=== PATIENT | female | born 1960 | race Caucasian/White ===

== ENCOUNTER 2024-08-21 12:20 | Day surgery (SDC) | payer OTHER, SELFPAY ==
--- NOTE | 2024-08-18 10:02 | EKG_ITS ---
[facility] Test Date: 2024-08-18 Pat Name: SUSAN JAMISON Department: Room: - Gender: Female Attendant [employer]: ELI : 1960 Requested By: Wilfredo Velasquez Order Number: [id number] Reading MD: Wilfredo Velasquez Measurements Intervals [place] Rate: 73 P: 79 MS: 226 QRS: 2 QRSD: 101 T: 48 QT: 391 QTc: 434 Interpretive Statements SINUS RHYTHM WITH FIRST DEGREE AV BLOCK Compared to ECG 04/20/2023 08:22:09 First degree AV block now present /store/S0/[id number].pdf
[2024-08-18 10:46] LABS: Partial Thromboplastin Time 27.9 Seconds (22.0-36.0); Prothrombin Time 10.8 Seconds (9.0-12.2)
[2024-08-18 11:04] LABS: Alanine Aminotransferase 17 U/L (10-49); Albumin, Serum 4.6 gm/dL (3.4-4.8); Albumin/Globulin Ratio 2.1 (1.2-2.2); Alkaline Phosphatase 67 U/L (46-116); Anion Gap 9 (7-16); Aspartate Amino Transferase 16 U/L (0-34); BUN/Creatinine Ratio 11 Ratio (12-20); Bilirubin,Total 0.8 mg/dL (0.3-1.2); Blood Urea Nitrogen 11 mg/dL (9-23); Calcium 10.4 mg/dL (8.3-10.6); Calcium (Corrected) 10.4 mg/dL (8.5-10.1); Carbon Dioxide 24.9 mMol/L (20.0-31.0); Chloride 106 mMol/L (98-107); Globulin 2.2 gm/dL (2.3-3.5); Glucose 114 mg/dL (74-106); Osmolality,Calculated 279 (275-295); Potassium 4.3 mMol/L (3.4-5.1); Sodium 140 mMol/L (136-145); Total Protein 6.8 gm/dL (5.7-8.2); eGFR > 60 See Note
[2024-08-18 15:23] VITALS: BMI 30.4
[2024-08-21] VITALS (8 sets, daily range): BP systolic 123–152; BP diastolic 50–87; PULSE 79–101; RESP 12–20; TEMP 36.3–36.8; O2SAT 94–98; BMI 30.7
[2024-08-21] MEDS: SODIUM CHLORIDE 0.9% 1000 ML 1,000 ML 80 ML IV (16:38)
--- NOTE | 2024-08-21 17:15 | SUR.PHASEII ---
Pt. arrived to recovery via [place], no c/o pain or nausea at this time, pt. awake, appears drowsy, words slurring, lung sounds clear, equal expansion echo., pt. receiving 2 liters 02 via [place], report received from [place] [facility] and Dr. Andrews.
--- NOTE | 2024-08-21 17:55 | SUR.PHASEII ---
Pt. meets criteria for discharge, VSS, no c/o pain or nausea at this time, IV discontinued without complications, provided discharge instructions to pt. and pt.'s , verbalized understanding. Escorted pt. to vehicle via w/c with all of belongings by staff.
== END 2024-08-21 17:55 | disposition home or self-care (01) ==
PROVIDERS: Referring Provider Specialist; Visit Provider Specialist
PROC: 0DJD8ZZ Inspection of Lower Intestinal Tract, Via Natural or Artificial Opening Endoscopic (ICD-10-PCS; CPT 45378; principal; 2024-08-21 14:45)
DX: D12.5 Benign neoplasm of sigmoid colon (principal); D12.8 Benign neoplasm of rectum; K64.9 Unspecified hemorrhoids; K57.31 Diverticulosis of large intestine without perforation or abscess with bleeding; Z01.810 Encounter for preprocedural cardiovascular examination
CPT/HCPCS: 45385; 45380; 36415; 80053; 85610; 85730; 93005; J7030

== ENCOUNTER 2025-05-07 09:00 | Day surgery (SDC) | payer BC, SELFPAY ==
--- NOTE | 2025-05-04 06:00 | EKG_ITS ---
[facility] Test Date: 2025-05-04 Pat Name: SUSAN JAMISON Department: Room: - Gender: Female Chemistry Intern: LARRY : 1960 Requested By: Adilson Andrews Order Number: [id number] Reading MD: Adilson Andrews Measurements Intervals [place] Rate: 67 P: 63 MD: 191 QRS: -11 QRSD: 104 T: 55 QT: 406 QTc: 431 Interpretive Statements SINUS RHYTHM Compared to ECG 08/18/2024 10:06:35 First degree AV block no longer present /store/S0/[id number].pdf
[2025-05-04 12:20] LABS: Alanine Aminotransferase 16 U/L (10-49); Albumin, Serum 5.2 gm/dL (3.4-4.8); Albumin/Globulin Ratio 2.1 (1.2-2.2); Alkaline Phosphatase 69 U/L (46-116); Anion Gap 8 (7-16); Aspartate Amino Transferase 18 U/L (0-34); BUN/Creatinine Ratio 10 Ratio (12-20); Bilirubin,Total 0.5 mg/dL (0.3-1.2); Blood Urea Nitrogen 11 mg/dL (9-23); Calcium 10.5 mg/dL (8.3-10.6); Calcium (Corrected) 10.5 mg/dL (8.5-10.1); Carbon Dioxide 27.4 mMol/L (20.0-31.0); Chloride 108 mMol/L (98-107); Creatinine (Component) 1.1 mg/dL (0.6-1.3); Globulin 2.5 gm/dL (2.3-3.5); Glucose 94 mg/dL (74-106); Osmolality,Calculated 284 (275-295); Potassium 4.4 mMol/L (3.4-5.1); Sodium 143 mMol/L (136-145); Total Protein 7.7 gm/dL (5.7-8.2); eGFR 57 See Note
[2025-05-04 15:37] VITALS: BMI 30.7
[2025-05-07 10:10] VITALS: BP 124/72; PULSE 91; RESP 17; TEMP 36.6; O2SAT 97
[2025-05-07 10:17] VITALS: TEMP 36.6; BMI 29.8
--- NOTE | 2025-05-07 10:44 | SUR.PREOP ---
Patient expressed gratitude for prayer before their procedure.
[2025-05-07] MEDS: RINGERS LACTATED 1000 ML 1,000 ML 20 ML IV (13:22)
[2025-05-07 14:12] VITALS: BP 138/64; PULSE 84; RESP 16; TEMP 36.5; O2SAT 95
[2025-05-07 14:22] VITALS: BP 141/75; PULSE 84; RESP 16; O2SAT 95
[2025-05-07 14:32] VITALS: BP 137/12; PULSE 86; RESP 16; O2SAT 95
== END 2025-05-07 14:42 | disposition home or self-care (01) ==
PROVIDERS: Anesthesiology; Referring Provider Specialist; Visit Provider Specialist
PROC: 0DJD8ZZ Inspection of Lower Intestinal Tract, Via Natural or Artificial Opening Endoscopic (ICD-10-PCS; CPT 45378; principal; 2025-05-07 11:15)
PROC: (CPT 43239; 2025-05-07 11:15)
DX: K29.50 Unspecified chronic gastritis without bleeding (principal); K20.90 Esophagitis, unspecified without bleeding; K52.9 Noninfective gastroenteritis and colitis, unspecified; K31.89 Other diseases of stomach and duodenum; K22.70 Barrett's esophagus without dysplasia; Z01.810 Encounter for preprocedural cardiovascular examination
CPT/HCPCS: 43239; 36415; 80053; 93005; A4649; J7120

== ENCOUNTER 2025-05-15 00:19 | Emergency (ER) | payer BC, SELFPAY ==
[2025-05-15 00:20] VITALS: BMI 30.7
[2025-05-15 01:17] VITALS: BP 117/59; PULSE 72; RESP 16; TEMP 36.8; O2SAT 98
--- NOTE | 2025-05-15 01:24 | XR_ITS ---
Examination: CT abdomen and pelvis without contrast. Coronal 3-D reconstructions. Sagittal 2-D reconstructions. Date and time of exam: May 15, 2025, 0134 hours, comparison 02/06/2023 INDICATIONS: Left flank pain today CTDI: vol (mGy): 10.41 DLP: (mGycm): 565 Technique: Axial images of the abdomen have been obtained, 3 mm slice thickness Intravenous contrast material has not been administered. Low dose protocols were performed. One or more of the following dose reduction techniques were used; automated exposure control, adjustment of the mA and/or KV according to patient size, use of iterative reconstruction technique. Findings: Liver mildly irregular in contour No gallstones Spleen not enlarged No pancreatic or adrenal mass No renal or ureteral calculi Aorta normal size No pericecal inflammatory change No bowel obstruction Colonic diverticulosis Acute diverticulitis descending colon for instance axial image 91 no peridiverticular abscess Absent uterus No adnexal mass Severe osteopenia, chronic wedging L5 vertebral body IMPRESSION: Acute diverticulitis descending colon, no peridiverticular abscess
--- NOTE | 2025-05-15 01:24 | PD.EDRME ---
Rapid Medical Screening Exam RME Arrival date/time: 05/15/25 00:19 This is a case of 64-year-old female who have history of gastritis status post colonoscopy 5 days ago and adnexal mass came in in the emergency room due to left-sided abdominal pain radiating to the left flank today no other symptoms noted Chief Complaint: Abdominal Pain Time Seen by Provider: 05/15/25 01:05 Vital signs: Vital Signs Temperature 98.2 F 05/15/25 01:17 Pulse Rate 72 05/15/25 01:17 Respiratory Rate 16 05/15/25 01:17 Blood Pressure 117/59 L 05/15/25 01:17 Pulse Oximetry (%) 98 05/15/25 01:17 Oxygen Delivery Method Room Air 05/15/25 01:17 Exam: Moderate tenderness left lower quadrant left flank no guarding no rebound no rigidity Clinical Impression: Abdominal pain
[2025-05-15 02:14] LABS: Basophils # (Auto) 0.1 Thou/mm3 (0.0-0.2); Basophils % (Auto) 1 % (0-2.5); Eosinophils # (Auto) 0.2 Thou/mm3 (0.0-0.5); Eosinophils % (Auto) 2 % (0-10); Hematocrit 37.9 % (36.0-46.0); Hemoglobin 12.6 g/dL (12.0-16.0); Immature Granulocytes Auto 0.03 Thou/mm3 (0.00-0.00); Lymphocytes # (Auto) 2.4 Thou/mm3 (1.0-4.8); Lymphocytes % (Auto) 24 % (10-50); Mean Corpuscular HGB Conc 33.2 g/dl (31.0-37.0); Mean Corpuscular Hemoglobin 30.0 pg (25.0-35.0); Mean Corpuscular Volume 90 fL (80-100); Monocytes # (Auto) 0.9 Thou/mm3 (0.0-0.8); Monocytes % (Auto) 9 % (0-12); Neutrophils # (Auto) 6.5 Thou/mm3 (1.8-7.7); Neutrophils % (Auto) 65 % (37-80); Nucleated Red Blood Cell # 0.00 Thou/mm3 (0.00-0.00); Nucleated Red Blood Cell % 0 /100 WBC (0); Platelet Count 274 Thou/mm3 (140-440); RDW Standard Deviation 43.6 fL (36.4-46.3); Red Blood Count 4.20 Miln/mm3 (4.00-5.20); White Blood Count 10.1 Thou/mm3 (3.6-11.0)
[2025-05-15 02:15] LABS: Collection Type, Urine Clean Catch
[2025-05-15 02:25] LABS: Bilirubin,Urine Negative (Negative); Blood,Urine Negative (Negative); Clarity,Urine Clear (Clear/Hazy); Color,Urine Yellow (Lt Yel-Yel); Glucose, Urine Negative (Negative); Ketones,Urine Negative (Negative); Leukocyte Esterase,Urine Positive (Negative); Nitrite,Urine Negative (Negative); PH,Urine 5.5 (5.0-7.0); Protein,Urine Trace (Neg - Trace); RBC,Urine 2 /hpf (0-3); Specific Gravity,Urine 1.031 (1.001-1.035); Squamous Epithelial Cell,Urine 1 /hpf (0-5); Urobilinogen,Urine Negative mg/dL (0.0-1.0); WBC,Urine 3 /hpf (0-5)
--- NOTE | 2025-05-15 02:28 | PRELIM_ITS ---
CT scan of the abdomen and pelvis without intravenous contrast (axial sections with sagittal and coronal reformats); May 15, 2025 at 0134 hours Clinical History: Abdominal pain. Comparison: None available at the time of this report. Findings: The lung bases are clear. The gallbladder, pancreas, spleen, kidneys and adrenals are unremarkable on this noncontrast study. Hepatomegaly. Mild irregular liver margins. No evidence of bowel obstruction. No evidence of appendicitis. S/p hysterectomy. There is no mesenteric or retroperitoneal adenopathy. The urinary bladder is unremarkable. There is no free fluid or free air. The osseous structures are unremarkable. Thickening of the descending colon associated with peripheral fat stranding, no perforation, no collections. Diverticulosis of the colon. Impression: Acute diverticulitis of the descending colon. Hepatomegaly and probable cirrhosis. Report Electronically Signed By: Noé Arceo 05/15/2025 2:27:53 AM [EST]
[2025-05-15 02:33] LABS: Alanine Aminotransferase 12 U/L (10-49); Albumin, Serum 4.7 gm/dL (3.4-4.8); Albumin/Globulin Ratio 2.0 (1.2-2.2); Alkaline Phosphatase 79 U/L (46-116); Anion Gap 8 (7-16); Aspartate Amino Transferase 14 U/L (0-34); BUN/Creatinine Ratio 11 Ratio (12-20); Bilirubin,Total 0.5 mg/dL (0.3-1.2); Blood Urea Nitrogen 11 mg/dL (9-23); Calcium 10.2 mg/dL (8.3-10.6); Calcium (Corrected) 10.2 mg/dL (8.5-10.1); Carbon Dioxide 29.0 mMol/L (20.0-31.0); Chloride 106 mMol/L (98-107); Creatinine (Component) 1.0 mg/dL (0.6-1.3); Estimated Creatinine Clearance 75.9 mL/min (>60); Globulin 2.4 gm/dL (2.3-3.5); Glucose 105 mg/dL (74-106); Lipase 46 U/L (12-53); Osmolality,Calculated 284 (275-295); Potassium 4.1 mMol/L (3.4-5.1); Sodium 143 mMol/L (136-145); Total Protein 7.1 gm/dL (5.7-8.2); eGFR > 60 See Note
--- NOTE | 2025-05-15 02:35 | EDNOTE_ITS ---
ED Abdominal Pain RME/HPI General Chief Complaint: Abdominal Pain Stated complaint: LEFT FLANK PAIN Time seen by provider: 05/15/25 01:05 Arrival date/time: 05/15/25 00:19 This is a case of 65-year-old female with with history of gastritis status post colonoscopy [address] velasquez came in in the emergency due to left-sided lower abdominal pain radiating to the left flank today associated with nausea vomiting denies any constipation diarrhea or blood in the stool persistence of the symptoms this patient decided to sought consult here in the emergency room Limitations: no limitations RME / HPI RME / HPI narrative: 05/15/25 00:19 This is a case of 64-year-old female who have history of gastritis status post colonoscopy 5 days ago and adnexal mass came in in the emergency room due to left-sided abdominal pain radiating to the left flank today no other symptoms noted Exam: Moderate tenderness left lower quadrant left flank no guarding no rebound no rigidity Impression: Abdominal pain Related Data Home Medications ?Medication ?Instructions ?Recorded ?Confirmed pantoprazole 40 mg tablet,delayed 40 mg PO DAILY 02/0605/04/25 release rosuvastatin 10 mg tablet 10 mg PO HS 02/06/23 5 Previous Rx's ?Medication ?Instructions ?Recorded ciprofloxacin HCl 500 mg tablet 500 mg PO BID 10 days #20 tabs 05/15/25 dicyclomine 20 mg tablet 20 mg PO TID PRN abdominal p ain 05/15/25 #20 tabs metronidazole 500 mg tablet 500 mg PO Q8H 10 days #30 tabs 05/15/25 ondansetron 4 mg disintegrating 4 mg PO Q8H #20 tabs 1 tablet Allergies Allergy/AdvReac Type Severity Reaction Status Date / Time No Known Allergies Allergy Verified 05/15/25 00:20 Review of Systems Review of Systems Systems Reviewed: All systems reviewed, normal except as documented Past Medical History Past Medical History NEUROLOGIC: Positive Migraine; Negative Neurological Disorders or Seizures CARDIAC: Positive Cardiac Disorders (cardiac arrest during surgery), Hypercholesterolemia and Hypertension (hx, no meds); Negative Congestive Heart Failure RESPIRATORY: Negative Chronic Obstructive Pulmonary Disease (COPD) GASTROINTESTINAL: Positive Gastrointestinal Disorders, Gastroesophageal Reflux Disease and Obesity; Negative Hepatitis GENITOURINARY: Negative Genitourinary Disorders (fatty liver) or Renal Disease REPRODUCTIVE: Positive Previous Pregnancies; Negative Endometriosis or Pelvic Inflammatory Disease MUSCULOSKELETAL: Negative Musculoskeletal Disorders ENDOCRINE: Positive Diabetes Mellitus Type 2 (hx, no meds, weight/diet controlled); Negative Endocrine Disorders (3 thyroid nodules) or Diabetes Mellitus Type 1 HEMATOLOGIC: Positive Blood Disorders and Anemia PSYCHO/SOCIAL: Positive Anxiety OTHER HISTORY: Positive Hospitalization (surgery), Chicken Pox and Mumps; Negative Autoimmune Disease, Shingles, Blood Transfusions, Anesthesia Reactions or Cancer Family History FAMILY HISTORY: Positive Family Surgery; Negative Family Psychiatric Problems, Family Respiratory Disorders, Family Cardiac Disorders, Family Gastrointestinal Problems, Family Cancer or Family Anesthesia Reaction Surgical History SURGICAL: Positive Hysterectomy and Tubal Ligation Social History SMOKING STATUS: Never smoker ED Exam General Limitations: Present no limitations General appearance: Present alert, in no apparent distress and other (Patient is awake alert oriented not in distress nontoxic looking well-hydrated well- nourished) Head Head exam: Present atraumatic, normocephalic and normal inspection Eye Eye exam: Present normal appearance, PERRL and EOMI ENT ENT exam: Present normal exam, normal oropharynx and mucous membranes moist Neck Neck exam: Present normal inspection, full ROM and trachea midline; Absent tenderness, meningismus, lymphadenopathy or thyromegaly Chest Chest inspection: Present normal inspection and symmetric chest wall rise; Absent tenderness Respiratory Respiratory exam: Present normal lung sounds bilaterally; Absent respiratory distress, wheezes, stridor, accessory muscle use or prolonged expiratory phase Cardiovascular Cardiovascular exam: Present regular rate, normal rhythm and normal heart sounds; Absent bradycardia, tachycardia, irregular rhythm, systolic murmur or diastolic murmur Abdominal Exam Abdominal exam: Present soft, tenderness (Moderate tenderness left lower quadrant left upper quadrant and left flank no guarding no rebound no rigidity no CVA tenderness bladder is nondistended nontender) and normal bowel sounds; Absent distention, guarding, rebound, rigidity, diminished bowel sounds, hyperactive bowel sounds, hypoactive bowel sounds, organomegaly, incision, psoas sign, obturator sign, Ascencio's sign, Rovsing's sign, tenderness at McBurney's Point or hernia Extremities Exam Extremities exam: Present normal inspection and full ROM Back Exam Back exam: Present normal inspection and full ROM Neurological Exam Neurological exam: Present alert, oriented X3, CN II-XII intact, normal gait and reflexes normal; Absent motor sensory deficit Psychiatric Psychiatric exam: Present normal affect and normal mood Skin Skin exam: Present warm, dry, intact, normal color and other (Excellent skin turgor) Course Quality Measures none Orders Category Date Time Status COVID-19 Screening Questionnaire NOW Care 05/15/25 02:37 Active Decision to Admit X1 Care 05/15/25 02:[address] abdomen pelvis wo con Stat Exams 05/15/25 01:24 Taken CBC Stat Lab 05/15/25 01:47 Completed Comprehensive Metabolic Panel Stat Lab 05/15/25 01:47 Completed Lactic Acid [Lactate (Lactic Acid)] Stat Lab 05/15/25 03:37 Completed Lipase Stat Lab 05/15/25 01:47 Completed Urinalysis Stat Lab 05/15/25 02:06 Completed Acetaminophen Tab [Tylenol ES Tab] Med 05/15/25 03:15 Discontinued 1,000 mg PO X1 ONE Sodium Chloride 0.9% 1000 ml [Ns] 1,000 ml Med 05/15/25 02:33 Discontinued IV 999 mls/hr cefTRIAXone/D5w 1gm IV premix [Rocephin/D5w 1gm IV Med 05/15/25 02:33 Discontinued premix] 1 gm in 50 ml IV X1 metroNIDAZOLE/NS 500 MG IVPB [Flagyl 500 mg IV] Med 05/15/25 02:33 Discontinued 500 mg in 100 ml IV X1 Vital Signs Vital signs: Vital Signs Temperature 98.2 F 05/15/25 01:17 Pulse Rate 72 05/15/25 01:17 Respiratory Rate 16 05/15/25 01:17 Blood Pressure 117/59 L 05/15/25 01:17 Pulse Oximetry (%) 98 05/15/25 01:17 Oxygen Delivery Method Room Air 05/15/25 01:17 Oxygen saturation is 98% in room air Abdominal Pain MDM MDM Narrative MDM Narrative:: This is a case of 65-year-old female with with history of gastritis status post colonoscopy [address] velasquez came in in the emergency due to left-sided lower abdominal pain radiating to the left flank today associated with nausea vomiting denies any constipation diarrhea or blood in the stool persistence of the symptoms this patient decided to sought consult here in the emergency room physical examination patient is awake alert oriented not in distress nontoxic looking well-hydrated well-nourished vital signs stable BP stable not tachycardic not tachypneic afebrile and nonhypoxic excellent skin turgor abdominal exam noted to be moderate tenderness on the left lower quadrant left upper quadrant of the abdomen left flank no guarding no rebound no rigidity negative psoas negative straight or negative Rovsing's negative McBurney's negative Ascencio sign negative CVA tenderness bladder is nondistended nontender blood test showed no leukocytosis no anemia kidney liver function is normal no electrolyte imbalance lipase is normal urinalysis is normal CT scan showed acute diverticulitis and hepatomegaly based on my physical examination and the result of the CT scan patient need to be admitted for IV antibiotic for acute diverticulitis I spoke to Dr. Ewing discussed patient condition history and physical examination relayed the result of blood test and imaging agreed that the patient need to be admitted further evaluation and IV antibiotic discussed with the patient the treatment plan and admission and agreed patient was given a bolus of normal saline and Zofran for vomiting and started on metronidazole and ceftriaxone for diverticulitis. spoke again with dr ewing at this time since the pain improved patient will be discharged patient will follow-up with Dr. Velasquez for further evaluation and treatment of diverticulitis I was instructed to discharge patient with ciprofloxacin and Rocephin lactic acid is normal I discussed with the patient treatment plan and discharge and agreed Patient was discharged with comfortable condition walking with stable gait. Patient verbalized no further complains explained diagnosis and answered patient question. Patient is comfortable with the proposed management plan including the need to follow up with his/her primary care physician and any specialist if applicable Discussed patient for any urgent condition or worsening sx, He/She needed to go to emergency room immediately or call 911. Patient acknowledge the responsibility to follow up as instructed and to monitor her/his symptoms. For any persistence of the symptoms for more than 3-5 days return precaution advised. Discussed the result of the test and was given printed discharge instruction Patient data External records reviewed:: [facility] previous records Clinical information provided by:: patient Social determinants that could affect healthcare access:: none Patient has the following chronic illnesses:: None How is presenting disease/condition affected by chronic disease/condition?: no chronic disease Evaluation data The following diagnostics were reviewed and interpreted by me:: lab results and radiology exam(s) Lab and/or radiology exams considered but not ordered:: Reviewed Interpretation Summary: Reviewed Medications / Prescriptions Medications or Prescriptions considered but not ordered:: Given Medication administrations:: Medication Administration History Discontinued Medications Acetaminophen (Acetaminophen 500 Mg Tablet) 1,000 mg PO X1 ONE Stop: 05/15/25 03:16 Last Admin: 05/15/25 03:35 Dose: 1,000 mg Documented By: GILA Sodium Chloride (Ns) 1,000 mls @ 999 mls/hr IV .Q1H1M ONE Stop: 05/15/25 03:33 Last Admin: 05/15/25 03:18 Dose: 999 mls/hr Documented By: EB Metronidazole (Flagyl 500 Mg Iv) 500 mg in 100 mls @ 200 mls/hr IV X1 ONE Stop: 05/15/25 03:02 Last Admin: 05/15/25 03:55 Dose: 200 mls/hr Documented By: EB Ceftriaxone Sodium/Dextrose (Rocephin/D5w 1gm Iv Premix) 1 gm in 50 mls @ 100 mls/hr IV X1 ONE Stop: 05/15/25 03:02 Last Infusion: 05/15/25 03:55 Dose: Infused Documented By: Admin: 05/15/25 03:19 Dose: 100 mls/hr Documented By: EB Given Consultations Consultation(s) initiated? (list below): Yes Consultation #1 (Physician, Specialty, Details): Dr. Potter discussed patient condition history and physical examination relayed the result of the blood test and imaging agree that the patient need to be admi tted for further evaluation and treatment of diverticulitis and for IV antibiotic Spoke again with Dr. Potter and I was told to discharge patient with ciprofloxacin and metronidazole and follow-up with Dr. Velasquez's clinic Diagnosis Differential diagnosis abdominal pain: abdominal pain, acute appendicitis, calculus of kidney, diverticulitis, gastroenteritis, pancreatitis and small bowel obstruction Most likely diagnosis given after review of the tests above:: Acute diverticulitis Admission Indicated Admission indicated?: not indicated Explain why admission is indicated or not indicated:: Not indicated patient condition improved Admission Request Was there a request for admission?: No Admission Attestation Admission request attestation: Not indicated Disposition Plan Disposition Plan: Discharge Discharge Attestation Discharge Attestation: The patient and all family members were given an opportunity to ask questions and understood the discharge instructions. Discharge instructions specifically effects, indications for sooner follow up or return to the emergency department, and the expected course of current diagnosis. Patient condition: Stable Discharge Plan Plan Patient Disposition: Admit Acute Care w/in Hospital Patient condition on transfer: Stable Prescriptions/Referrals Prescriptions/Med Rec: New ciprofloxacin HCl 500 mg tablet 500 mg PO BID 10 Days Qty: 20 0RF metronidazole 500 mg tablet 500 mg PO Q8H 10 Days Qty: 30 0RF dicyclomine 20 mg tablet 20 mg PO TID PRN (Reason: abdominal pain) Qty: 20 0RF ondansetron 4 mg tablet,disintegrating 4 mg PO Q8H Qty: 20 0RF No Action pantoprazole 40 mg tablet,delayed release (DR/EC) 40 mg PO DAILY rosuvastatin 10 mg tablet 10 mg PO HS Referrals: No Primary/Family,Physician [Primary Care Provider] - In 1 week Problem List Clinical Impression: Acute diverticulitis, Abdominal pain Patient/Caregiver Discharge Instructions Education Materials: Abdominal Pain, ED Diverticulitis Additional Instructions: Follow-up with your primary care physician in 2 days for reevaluation call Dr. Velasquez's clinic tomorrow for reevaluation and further treatment of your diverticulitis recurrence persistent worsening symptoms or any emergent concern call 911 or go to the nearest emergency room take your medication as directed finish the course of antibiotic Pedialyte Gatorade for hydration is adsvied Print Language: Croatian Stand Alone Forms: Sariah Award Info., Patient Portal Info Letter PA/SUPERVISOR ROAD ADMINISTRATOR Supervising Physician PA/SUPERVISOR ROAD ADMINISTRATOR Supervising Physician: Dr. Colón
[2025-05-15 03:04] VITALS: BP 145/87; PULSE 79; RESP 20; TEMP 37.1; O2SAT 96
[2025-05-15] MEDS: SODIUM CHLORIDE 0.9% 1000 ML 1,000 ML 999 ML IV (03:18)
[2025-05-15] MEDS: cefTRIAXone/D5w 1gm IV premix 1 GM/50 ML BAG IV (03:19)
--- NOTE | 2025-05-15 03:29 | EVENTNT_ITS ---
<Statement entered by Marty Elmore MD - 05/15/25 07:14> I have seen and examined the patient. I was physically present for the pierre portions of the services provided including history, physical exam, diagnosis, treatment plans and orders. I agree with assessment and plan of care as documented by residents. After examination of the patient and review of the clinical data I feel that this patient needs admission to the hospital for further treatment/evaluation. Even though this this note was carefully revised there may still be minor errors in collection systems worker due to voice recognition software. Marty Elmore MD. Documentation for date of: 05/15/25 Event Note Event Note: The hospitalist team evaluated patient Dixie Gregg in the morning of 05/15/2025. She presented with a 1 day history of left-sided abdominal pain. Patient had a colonoscopy 05/07/2025 that showed evidence of diverticulitis. CT abdomen pelvis this visit showed evidence of acute diverticulitis of the descending colon. The patient was afebrile and had no leukocytosis. Vitals were stable. Physical exam was significant for left-sided abdominal tenderness on deep palpation. There were no signs of acute abdomen: no guarding, no rigidity, no rebound tenderness. It was determined that the patient did not meet criteria for admission. Hospitalist team recommended outpatient treatment with antibiotics. Patient was seen and discussed with my attending physician Dr. Ramírez DIAZ. Henri Potter DO PGY-1.
[2025-05-15 03:35] VITALS: TEMP 37.1
[2025-05-15] MEDS: ACETAMINOPHEN 500 MG TABLET 1000 MG PO (03:35)
[2025-05-15 03:48] LABS: Lactate (Lactic Acid) 0.8 mMol/L (0.4-2.0)
[2025-05-15] MEDS: metroNIDAZOLE/NS 500 MG IVPB 500 MG/100 ML BAG 200 MG IV (03:55)
[2025-05-15 04:29] VITALS: BP 118/64; PULSE 63; RESP 14; TEMP 36.5; O2SAT 95
[2025-05-15 04:43] VITALS: TEMP 37.2
== END 2025-05-15 05:04 | disposition home or self-care (01) ==
PROVIDERS: Nurse Practitioner Family; Emergency Provider Emergency Medicine
DX: K57.32 Diverticulitis of large intestine without perforation or abscess without bleeding (principal)
CPT/HCPCS: 36415; 74176; 80053; 81001; 83605; 83690; 85025; 96365; 99283; J0696; J3490; J7030; A9270; J1836